=== PATIENT | female | born 1990 | race Caucasian/White ===

== ENCOUNTER 2023-03-23 10:33 | Emergency (ER) | payer OTHER ==
[2023-03-23 10:39] VITALS: BP 126/78; PULSE 88; RESP 18; TEMP 98.6; BMI 21.7
== END 2023-03-23 13:12 | disposition home or self-care (01) ==
LOC: JERFT 10:33
DX: R05.9 Cough, unspecified (principal); Z20.822 Contact with and (suspected) exposure to COVID-19
CPT/HCPCS: 0241U-QW; 71046-TC-FY; 99284-25

== ENCOUNTER 2023-06-23 08:41 | Emergency (ER) | payer OTHER ==
[2023-06-23 09:20] VITALS: BMI 21.7
[2023-06-23 11:00] LABS: INR 1.01 (0.83-1.09); PROTHROMBIN TIME (PATIENT) 11.7 SEC (9.7-13.0)
[2023-06-23 11:03] LABS: ACTIVATED PTT 32.3 SECONDS (25.2-36.5); BASO % 0.2 % (0-2.0); EOS % 1.8 % (0-4.5); HEMATOCRIT 40.7 % (32.4-45.2); HEMOGLOBIN 13.4 GM/dL (10.7-15.3); LYMPH % 37.4 % (8-40); MEAN CELL VOLUME 90.9 fl (80-96); MEAN PLT VOLUME 8.6 fl (7.5-11.1); MONO % 8.9 % (3.8-10.2); NEUT % 51.7 % (42.8-82.8); PLATELET COUNT 242 10^3/uL (134-434); RBC 4.48 M/mm3 (3.60-5.2); WHITE BLOOD COUNT 7.7 K/mm3 (4.0-10.0)
[2023-06-23 11:22] LABS: POTASSIUM 3.7 mmol/L (3.5-5.1)
[2023-06-23 11:24] LABS: CALCIUM 9.2 mg/dL (8.5-10.1)
[2023-06-23 11:25] LABS: ALBUMIN 3.8 g/dl (3.4-5.0); BLOOD UREA NITROGEN 8.8 mg/dL (7-18)
[2023-06-23 11:29] LABS: TOT PROT 7.9 g/dl (6.4-8.2)
[2023-06-23 11:30] LABS: BILIRUBIN,TOTAL 0.6 mg/dL (0.2-1)
[2023-06-23 11:31] LABS: CREATININE 0.6 mg/dL (0.55-1.3)
[2023-06-23 11:54] VITALS: BP 133/72; PULSE 64; RESP 20; TEMP 98.1
== END 2023-06-23 11:54 | disposition home or self-care (01) ==
LOC: JER 08:41 → JERFT 08:41
DX: S70.11XA Contusion of right thigh, initial encounter (principal); S40.021A Contusion of right upper arm, initial encounter; X58.XXXA Exposure to other specified factors, initial encounter
CPT/HCPCS: 36415; 80053; 84703; 85025; 85610; 85730; 86850; 86900; 86901; 99283-25